=== PATIENT | male | born 1940 | race Asian ===

== ENCOUNTER 2021-02-25 04:25 | Inpatient (IN) | payer MEDICARE ==
[~2021-02-25] VITALS: Ht 175.3 cm; Wt 72.3 kg
[2021-02-25] VITALS (8 sets, daily range): BP systolic 129–174; BP diastolic 73–106
--- NOTE | 2021-02-25 04:51 | NUR ---
PT PITO VILLA PICKED UP FROM [facility], PT DROVE [place] ALONE [place], BUT LEFT ALL OF HIS ANTI HYPERTENSIVE MEDS AND LASIX IN THE BAY BECAUSE HE DIDN'T THINK HE'D NEED THEM. PT SAYS HE TAKES APPROXIMATELY 9 DIFF MEDS. PT STATES HE'S BEEN SHORT OF BREATH SINCE ABOUT 2200 AND IT GOT WORST NOW. USUALLY USES HIS WALKER IN [place], BUT UP HERE HE HAD DIFFICULTY AND INCREASED SOB. PT HAD EKG DONE, PIV STARTED TO LEFT HAND WITH 22G PIV X1 ATTEMPT. PT ON FULL CR MONITOR, AND NO COMPLAINT OF CHEST PAIN AT THIS TIME, JUST AN INCREASE IN SHORTNESS OF BREATH. PT O2 SATS 97%. ON RA.
--- NOTE | 2021-02-25 04:52 | NUR ---
EQUIPMENT DETAILER TO BEDSIDE TO DRAW BLOOD.
[2021-02-25] MEDS ORDERED: SODIUM CHLORIDE FLUSH 10ML SYR IVF ONE (05:00)
[2021-02-25 05:10] LABS: BASOPHILS % (AUTO) 1 % (0-1); EOSINOPHILS % (AUTO) 2 % (1-7); LYMPHOCYTES % (AUTO) 14 % (22-44); MEAN CORPUSCULAR HEMOGLOBIN 31.6 pg (27.5-34.5); MEAN CORPUSCULAR HGB CONC 33.6 g/dL (33.2-36.2); MEAN PLATELET VOLUME 7.8 fL (7.4-10.4); MONOCYTES % (AUTO) 11 % (2-9); NEUTROPHILS % (AUTO) 72 % (42-75); PLATELET COUNT 293 x10^3/uL (130-400); RED BLOOD COUNT 4.09 x10^6/uL (4.38-5.82); RED CELL DISTRIBUTION WIDTH 16.3 % (9.4-14.8)
[2021-02-25 05:11] LABS: MD NO
[2021-02-25 05:23] LABS: ALANINE AMINOTRANSFERASE 16 U/L (12-78); ALBUMIN 3.4 g/dL (3.4-5.0); ANION GAP 7 mmol/L (5-15); CALCIUM 9.2 mg/dL (8.5-10.1); CHLORIDE 113 mmol/L (98-107); CREATININE 2.16 mg/dL (0.7-1.3); INTERNATIONAL NORMALIZED RATIO 1.07 (0.93-1.1); PROTHROMBIN TIME 11.4 Seconds (9.6-11.5)
[2021-02-25 05:27] LABS: ALKALINE PHOSPHATASE 142 U/L (45-117); BILIRUBIN,TOTAL 0.8 mg/dL (0.2-1.0); TOTAL PROTEIN 7.9 g/dL (6.4-8.2); TROPONIN I 0.019 ng/mL (0.000-0.045)
[2021-02-25] MEDS ORDERED: PLEASE ENTER ALLERGIES MC SCH (05:30)
[2021-02-25] MEDS ORDERED: FUROSEMIDE 40 MG/4 ML IV ONE (05:30)
[2021-02-25] MEDS ORDERED: FUROSEMIDE 40 MG/4 ML ONE (05:31)
[2021-02-25] MEDS ORDERED: LABETALOL 5MG/ML, 20ML ONE (05:47)
--- NOTE | 2021-02-25 05:55 | NUR ---
PT NEEDED TO VOID, AND PROVIDED URINAL AND PT NEEDED TO STAND UP, SO ASSISTED TO STAND, PT IS STEADY AND INDEPENDENT, AND VOIDED APPROX 300ML AT THIS TIME, CLEAR YELLOW URINE.
[2021-02-25] MEDS ORDERED: LABETALOL 5MG/ML, 20ML IVPush ONE (06:00)
--- NOTE | 2021-02-25 06:08 | NUR ---
PT MEDICATED PER MD ORDER ON EMAR, AND TOOK LASIX 40MG TO HELP HIM PEE, AND BRING DOWN HIS HTN. PIV TO LEFT HAND INTACT, AND FLUSHES EASILY BUT SLOWLY, NO SWELLING, NO REDNESS, NO PAIN NOTED BY PT ON INFUSION OF MEDS.
--- NOTE | 2021-02-25 06:25 | NUR ---
PT CALLED FOR ASSISTANCE TO DISCONNECT AND STAND UP TO VOID. PT VOIDED APPROXIMATELY 400 ML OF CLEAR YELLOW URINE. PT ABLE TO GET BACK IN BED ON HIS OWN, AND PLACED BACK ON CR MONITOR, AND 2 LPM NC.
--- NOTE | 2021-02-25 06:36 | NUR ---
PT TO BE ADMITTED TO HOSPITAL PER MD ORDERS. PT CALM AND RESTING IN HIS ROOM, ON CR MONITOR. NO PAIN NOTED, AND GOOD AIRWAY WITH GOOD AERATION AND OXYGENATION. PT ON 2 LPM NC.
--- NOTE | 2021-02-25 06:51 | NUR ---
REPORT AND CARE TO SEAN REDDY.
[2021-02-25] MEDS ORDERED: morphine SULFATE 10 MG/ML, 1ML IVPush PRN (07:30)
[2021-02-25] MEDS ORDERED: GUAIFENESIN/DM 200-20MG, 10ML UDC PO PRN (07:30)
[2021-02-25] MEDS ORDERED: ENALAPRILAT 1.25 MG/ML, 2ML IVPush PRN (07:30)
[2021-02-25] MEDS ORDERED: ONDANSETRON 2MG/ML, 2ML IVPush PRN (07:30)
[2021-02-25] MEDS ORDERED: ACETAMINOPHEN 325 MG TABLET PO PRN (07:30)
[2021-02-25] MEDS ORDERED: DOCUSATE 100 MG CAPSULE PO PRN (07:30)
[2021-02-25] MEDS ORDERED: HEPARIN 5,000 UNITS/ML, 1ML SQ SCH (07:30)
[2021-02-25] MEDS ORDERED: POLYETHYLENE GLYCOL 17 GM PACKET PO PRN (07:30)
--- NOTE | 2021-02-25 07:41 | NUR ---
Report given to BARRY Moseley.
[2021-02-25] MEDS ORDERED: ASPI-963 PO (11:49)
[2021-02-25] MEDS ORDERED: CARV6.2512 PO (11:49)
[2021-02-25] MEDS ORDERED: FURO40TA6 PO (11:49)
[2021-02-25] MEDS ORDERED: AMIO400T5 PO (11:49)
[2021-02-25] MEDS ORDERED: TAMS-11 PO (11:49)
[2021-02-25] MEDS ORDERED: ATOR80TA PO (11:49)
[2021-02-25] MEDS ORDERED: CLOP75TA52 PO (11:49)
[2021-02-25] MEDS ORDERED: ALLO100T30 PO (11:49)
[2021-02-25] MEDS ORDERED: NITR0.6T4 SL (11:49)
[2021-02-25] MEDS ORDERED: PANT40TA3 PO (11:49)
[2021-02-25] MEDS: CLOPIDOGREL 75 MG TABLET PO SCH (12:24)
[2021-02-25] MEDS: AMIODARONE 200 MG TABLET PO SCH (12:24)
[2021-02-25] MEDS: ASPIRIN 81 MG TABLET EC PO SCH (12:24)
[2021-02-25] MEDS: CARVEDILOL 6.25 MG TABLET PO SCH ×2 (12:24→20:08)
[2021-02-25] MEDS: TAMSULOSIN 0.4 MG CAP.ER.24H PO SCH (12:24)
[2021-02-25] MEDS: ATORVASTATIN 80 MG TABLET PO SCH (20:08)
[2021-02-26 00:59] VITALS: BP 132/70
[2021-02-26 04:52] LABS: BASOPHILS % (AUTO) 1 % (0-1); EOSINOPHILS % (AUTO) 4 % (1-7); LYMPHOCYTES % (AUTO) 16 % (22-44); MD NO; MEAN CORPUSCULAR HEMOGLOBIN 31.7 pg (27.5-34.5); MEAN CORPUSCULAR HGB CONC 33.2 g/dL (33.2-36.2); MEAN PLATELET VOLUME 7.9 fL (7.4-10.4); MONOCYTES % (AUTO) 13 % (2-9); NEUTROPHILS % (AUTO) 67 % (42-75); PLATELET COUNT 266 x10^3/uL (130-400); RED BLOOD COUNT 4.12 x10^6/uL (4.38-5.82); RED CELL DISTRIBUTION WIDTH 16.3 % (9.4-14.8)
[2021-02-26 05:08] LABS: ALBUMIN 3.3 g/dL (3.4-5.0); ANION GAP 6 mmol/L (5-15); CALCIUM 9.4 mg/dL (8.5-10.1); CHLORIDE 110 mmol/L (98-107)
[2021-02-26 05:11] LABS: ALANINE AMINOTRANSFERASE 13 U/L (12-78); ALKALINE PHOSPHATASE 130 U/L (45-117); BILIRUBIN,TOTAL 1.2 mg/dL (0.2-1.0); CREATININE 2.29 mg/dL (0.7-1.3); TOTAL PROTEIN 7.5 g/dL (6.4-8.2)
[2021-02-26] MEDS ORDERED: FUROSEMIDE 40 MG TABLET ONE (08:29)
[2021-02-26 08:35] VITALS: BP 178/99
[2021-02-26] MEDS: TAMSULOSIN 0.4 MG CAP.ER.24H PO SCH (08:36)
[2021-02-26] MEDS: CLOPIDOGREL 75 MG TABLET PO SCH (08:36)
[2021-02-26] MEDS: CARVEDILOL 6.25 MG TABLET PO SCH (08:36)
[2021-02-26] MEDS: ASPIRIN 81 MG TABLET EC PO SCH (08:36)
[2021-02-26] MEDS: AMIODARONE 200 MG TABLET PO SCH ×2 (08:37→20:45)
[2021-02-26] MEDS: FUROSEMIDE 40 MG TABLET PO SCH (08:37)
[2021-02-26] MEDS ORDERED: FUROSEMIDE 40 MG/4 ML IV SCH (09:00)
[2021-02-26 09:02] LABS: TROPONIN I 0.019 ng/mL (0.000-0.045)
[2021-02-26] MEDS ORDERED: DIGOXIN 0.25 MG/ML, 2ML ONE (10:26)
[2021-02-26] MEDS ORDERED: DIGOXIN 0.25 MG/ML, 2ML IVPush ONE (10:30)
[2021-02-26] MEDS ORDERED: FILTER 0.22 MICRON FOR AMIODARONE IV PRN (10:30)
[2021-02-26] MEDS ORDERED: AMIODARONE 150 MG in DEXTROSE 5% 100 ML IV ONE (10:30)
[2021-02-26] MEDS: APIXABAN 2.5 MG TABLET PO SCH ×2 (12:58→20:45)
[2021-02-26 14:55] VITALS: BP 132/89
[2021-02-26 18:29] VITALS: BP 150/73
[2021-02-26] MEDS: CARVEDILOL 12.5 MG TABLET PO SCH (20:45)
[2021-02-26] MEDS: ATORVASTATIN 80 MG TABLET PO SCH (20:45)
[2021-02-27 01:23] VITALS: BP 144/78
[2021-02-27 05:20] LABS: BASOPHILS % (AUTO) 1 % (0-1); EOSINOPHILS % (AUTO) 4 % (1-7); LYMPHOCYTES % (AUTO) 18 % (22-44); MEAN CORPUSCULAR HEMOGLOBIN 31.2 pg (27.5-34.5); MEAN PLATELET VOLUME 8.2 fL (7.4-10.4); MONOCYTES % (AUTO) 15 % (2-9); NEUTROPHILS % (AUTO) 62 % (42-75); PLATELET COUNT 243 x10^3/uL (130-400); RED BLOOD COUNT 4.04 x10^6/uL (4.38-5.82); RED CELL DISTRIBUTION WIDTH 15.9 % (9.4-14.8)
[2021-02-27 05:22] LABS: MD NO
[2021-02-27 05:34] LABS: CHLORIDE 109 mmol/L (98-107)
[2021-02-27 05:44] LABS: ANION GAP 9 mmol/L (5-15); CALCIUM 9.1 mg/dL (8.5-10.1); CREATININE 2.27 mg/dL (0.7-1.3)
[2021-02-27 07:17] VITALS: BP 169/71
[2021-02-27] MEDS: APIXABAN 2.5 MG TABLET PO SCH (08:34)
[2021-02-27] MEDS: FUROSEMIDE 40 MG TABLET PO SCH (08:34)
[2021-02-27] MEDS: CLOPIDOGREL 75 MG TABLET PO SCH (08:34)
[2021-02-27] MEDS: TAMSULOSIN 0.4 MG CAP.ER.24H PO SCH (08:34)
[2021-02-27] MEDS: CARVEDILOL 12.5 MG TABLET PO SCH (08:34)
[2021-02-27] MEDS: AMIODARONE 200 MG TABLET PO SCH (08:35)
[2021-02-27 09:47] VITALS: BP 168/75
[2021-02-27 12:35] VITALS: BP 159/78
[2021-02-27] MEDS ORDERED: HYDR-3342 PO (14:17)
[2021-02-27] MEDS ORDERED: APIX2.5T PO (14:17)
[2021-02-27] MEDS ORDERED: CARV12.52 PO (14:17)
== END 2021-02-27 15:15 | disposition home or self-care (01) | DRG 291 ==
LOC: SUATTDRO 06:38 → ED 07:26 → EDIP 07:44 → 5SO 07:59 → DCLOUNGE 02-27 15:09
PROVIDERS: ADMIT Internal Medicine; ATTEND Internal Medicine
DX: I11.0 Hypertensive heart disease with heart failure (principal); J96.01 Acute respiratory failure with hypoxia; N17.9 Acute kidney failure, unspecified; I16.1 Hypertensive emergency; D68.59 Other primary thrombophilia; I50.23 Acute on chronic systolic (congestive) heart failure; E78.5 Hyperlipidemia, unspecified; I48.0 Paroxysmal atrial fibrillation; N28.9 Disorder of kidney and ureter, unspecified; I25.10 Atherosclerotic heart disease of native coronary artery without angina pectoris; I25.5 Ischemic cardiomyopathy; Z95.1 Presence of aortocoronary bypass graft; Z87.891 Personal history of nicotine dependence; Z91.14 Patient's other noncompliance with medication regimen; Z79.01 Long term (current) use of anticoagulants; Z95.5 Presence of coronary angioplasty implant and graft; Z86.74 Personal history of sudden cardiac arrest; Z95.818 Presence of other cardiac implants and grafts
CPT/HCPCS: 36415; 71045; 80048; 80053; 83036; 83735; 83880; 84100; 84443; 84484; 85025; 85610; 85730; 93005; 93306; 93356; G0378; J1644; J1940; J0282; J1160